=== PATIENT | female | born 1985 | race Caucasian/White ===

== ENCOUNTER 2016-09-24 09:30 | Emergency (ER) | payer OTHER ==
--- NOTE | ~2016-09-24 | CR126 ---
[facility] A Service of [facility] RADIOLOGY TEXT RESULTS PATIENT: BROOKE RANGEL LOCATION: SED : 81 UNIT #: [id number] AGE: [address]: Vishnu Jarvis MD SEX: F ORDER DR: [id number] [address] [address] [id number] E MR#: [id number] Acc #: [id number] NAME: BROOKE RANGEL : 1985 SEX: F STUDY DATE/TIME: 09/24/2016 9:51 UNIT: SED ROOM: STUDY DESCRIPTION: CR Foot Complete Min 3 View Lt Attending Physician: Vishnu Jarvis M.D. Ordering Physician: Vishnu Jarvis M.D. Primary Care Physician: Zafar Quach M.D. MEDICAL IMAGING REPORT This report is preliminary unless electronic signature is present. 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 Lateral ankle pain. Pain dorsal foot. 7 weeks . FINDINGS Three views of the left foot demonstrate no fracture. Cortex is intact and mineralization preserved. Soft tissues appear normal. IMPRESSION Negative left foot. Dictated by... Marshall Nolasco M.D. THIS IS AN ELECTRONICALLY VERIFIED REPORT Marshall Nolasco M.D. at 09/24/2016 2:41 PM MARTINA/debby TD: 09/24/2016 14:04 JOB #: [id number] MEDICAL IMAGING REPORT Page 1 of 1
--- NOTE | ~2016-09-24 | CR20 ---
[facility] A Service of [facility] & [facility] RADIOLOGY TEXT RESULTS PATIENT: BROOKE RANGEL LOCATION: SED : [birth year] UNIT #: [id number] AGE: [address]: Vishnu Jarvis MD SEX: F ORDER DR: [id number] [address] [address] [id number] E MR#: [id number] Acc #: [id number] NAME: BROOKE RANGEL : 1985 SEX: F STUDY DATE/TIME: 09/24/2016 9:51 UNIT: SED ROOM: STUDY DESCRIPTION: CR Ankle Min 3 Views Lt Attending Physician: Vishnu Jarvis M.D. Ordering Physician: Vishnu Jarvis M.D. Primary Care Physician: Zafar Quach M.D. MEDICAL IMAGING REPORT This report is preliminary unless electronic signature is present. 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 Lateral ankle pain, dorsal foot pain. Symptoms noted today. Patient is 7 weeks . FINDINGS 3 views of the left ankle demonstrate intact ankle mortise. Cortex is preserved with no fracture. Mineralization appears normal. Minimal soft tissue swelling only. IMPRESSION Minimal soft tissue swelling. No fracture. Negative otherwise. Dictated by... Marshall Nolasco M.D. THIS IS AN ELECTRONICALLY VERIFIED REPORT Marshall Nolasco M.D. at 09/24/2016 2:41 PM Jerry TD: 09/24/2016 13:58 JOB #: [id number] MEDICAL IMAGING REPORT Page 1 of 1
[2016-09-24] MEDS ORDERED: ZOLOFT PO (09:40)
[2016-09-24] MEDS ORDERED: BIRTH CONTROL (09:40)
== END 2016-09-24 10:47 | disposition home or self-care (01) ==
LOC: SED 09:30
DX: S93.402A Sprain of unspecified ligament of left ankle, initial encounter (principal); S93.602A Unspecified sprain of left foot, initial encounter; A69.20 Lyme disease, unspecified; Z98.890 Other specified postprocedural states; Z79.899 Other long term (current) drug therapy; Z88.5 Allergy status to narcotic agent; Z88.8 Allergy status to other drugs, medicaments and biological substances; W18.30XA Fall on same level, unspecified, initial encounter; Y92.69 Other specified industrial and construction area as the place of occurrence of the external cause; Y93.89 Activity, other specified; Y99.0 Civilian activity done for income or pay
CPT/HCPCS: 29405; 73610; 73630; 99283